=== PATIENT | female | born 1970 | race Caucasian/White ===

== ENCOUNTER 2024-09-16 20:06 | Emergency (ER) | payer OTHER, SELFPAY ==
[2024-09-16 20:08] VITALS: BP 134/84; PULSE 84; RESP 18; TEMP 35.9; O2SAT 98; BMI 32.7
--- NOTE | 2024-09-16 20:40 | EKG12_ITS ---
Test Reason : DYSRHYTHMIA Blood Pressure : */* mmHG Vent. Rate : 77 BPM Atrial Rate : 77 BPM P-R Int : 158 ms QRS Dur : 94 ms QT Int : 402 ms P-R-T Axes : 38 6 22 degrees QTcB Int : 454 ms Normal sinus rhythm Minimal voltage criteria for LVH, may be normal variant ( R in aVL ) Borderline ECG Confirmed by MIKE VILLASENOR, MAE ([id number]), advertising editor NIMA POLLOCK ([id number]) on 09/17/2024 9:28:30 AM Referred By: Confirmed By: MAE MCKEON MD
--- NOTE | 2024-09-16 20:48 | RAD_ITS ---
PROCEDURE: CHEST PA AND LATERAL 09/16/2024 REASON FOR EXAM: HTN TECHNIQUE: Frontal and lateral views of the chest. COMPARISON: None FINDINGS: Hardware: None Heart: The heart size is normal. Mediastinum: The mediastinal contour is unremarkable. Lungs: The lungs are clear. Bones: The bones are unremarkable. Status post ACDF RAD/Chest PA and Lateral IMPRESSION: NO ACUTE FINDINGS. Reading Location: [facility]
--- NOTE | 2024-09-16 20:53 | EX.ED.DYSGE1 ---
HPI History of Present Illness Chief Complaint: Hypertension Narrative Narrative: Chief complaint and HPI: HTN. 54-year-old female with past medical history of HTN, peripheral neuropathy, GERD presents for evaluation of HTN. Patient states that she is on metoprolol and lisinopril for hypertension. She states it has been elevated the past several months so she checks it frequently. She is currently visiting from [facility] where she lives. She states she checked her blood pressure at home this evening and it was elevated. She states her Apple Watch is occasionally alerting her that she has tachycardia with a heart rate in the low 100s. Patient denies any lightheadedness, chest pain, shortness of breath, nausea, vomiting, fever, chills. Review of systems: See HPI Medications: As listed on the chart Allergies: As listed on the chart PFSH: Per chart Vital signs: As listed on the chart. Reviewed. Physical exam: Gen: A&O x3, NAD Head: Normocephalic, atraumatic Eyes: No sclera icterus, conjunctiva clear ENT: Moist mucous membranes Neck: Trachea midline, No JVD CV: RRR, no murmurs, no peripheral edema Resp: Lungs CTA BL, no w/r/c GI: Abd soft, non-distended, non-tender, no r/r/g Musc: Full ROM, no deformity Skin: Warm, dry Neuro: Alert, oriented, grossly intact, sensation intact Psych: Cooperative, appropriate mood and affect [facility] Medical History (Updated 09/16/24 @ 21:[address] Manas Carrizales, ) Hx of renal calculi Hx of blood clots GERD (gastroesophageal reflux disease) Fibromyalgia Hypertension Home Medications ?Medication ?Instructions ?Recorded ?Last Taken ?Type duloxetine 40 mg capsule,delayed 40 mg PO DAILY 09/16/24 Unknown History release lisinopril 5 mg tablet 5 mg PO DAILY 09/16/24 Unknown History metoprolol succinate 25 mg capsule 25 mg PO DAILY 09/16/24 Unknown History sprinkle, ext. release 24 hr pantoprazole 40 mg tablet,delayed 40 mg PO DAILY 09/16/24 Unknown History release Allergy/AdvReac Type Severity Reaction Status Date / Time indomethacin (From Indocin) Allergy Low white Verified 09/16/24 20:08 blood cell naproxen (From Naprosyn) Allergy Other Verified 09/16/24 20:08 Sulfa (Sulfonamide Allergy Rash Verified 09/16/24 20:08 Antibiotics) Surgical History (Updated 09/16/24 @ 20:31 by Frances Zelaya) History of prolapse of bladder Hx of neck surgery Hx of cholecystectomy Hx of tonsillectomy Hx of hysterectomy with oophorectomy History of ankle surgery Social History Smoking Status: Never smoker EXAM Physical Exam Const Vital Signs: 09/16/24 20:08 09/16/24 20:17 09/16/24 21:55 Temperature 96.6 F L 98.0 F Temperature Source Temporal Pulse Rate 84 83 Respiratory Rate 18 16 Respiratory Effort Normal Non-Labored Respiratory Pattern Normal Blood Pressure 134/84 H 130/82 H Blood Pressure Mean 100 98 Pulse Ox 98 98 Oxygen Delivery Method Room Air MDM MDM MDM Narrative Medical decision making narrative: 54-year-old female with past medical history of HTN, peripheral neuropathy, GERD presents for evaluation of HTN. Patient states that she is on metoprolol and lisinopril for hypertension. Denies any associated symptoms with the HTN. On presentation, patient is no acute distress. Vitals are stable other than mild hypertension with blood pressure 134/84. Differential diagnosis includes but is not limited to established hypertension, hypertension urgency, hypertensive emergency, arrhythmia. Will get basic labs including EKG and chest x-ray. Will monitor patient's vitals here in the emergency department. EKG and chest x-ray reviewed see below. CBC unremarkable without leukocytosis, anemia. No platelet dysfunction. BMP unremarkable. Troponin unremarkable. Patient not having any chest pain therefore will not get delta troponin. Patient's blood pressure is 130/82. She has not been tachycardic here in the emergency department. She is asymptomatic. Patient is stable to discharge home. No clear etiology for her reported abnormalities. She was told to continue monitoring. Follow-up with PCP. Return precautions explained. She confirmed understand the plan. EKG: Interpreted by me/EM physician: EKG shows normal sinus rhythm without any acute ischemic changes. Heart rate 77. Diagnostic: Interpreted by me/EM physician: Chest x-ray without pneumonia, effusion, cardiomegaly, pneumothorax Impression: 1. Hypertension with history of hypertension 2. Reported tachycardia Lab Data Labs: Laboratory Results - last 24 hr 09/16/24 20:30 WBC 9.5 RBC 4.95 Hgb 14.0 Hct 41.9 MCV 84.6 MCH 28.3 MCHC 33.4 RDW Std Deviation 38.4 RDW Coeff of Audra 12.6 Plt Count 379 MPV 9.4 Immature Gran % (Auto) 0.300 Neut % (Auto) 46.2 L Lymph % (Auto) 45.3 H Franklin % (Auto) 5.9 Eos % (Auto) 1.6 Baso % (Auto) 0.7 Absolute Neuts (auto) 4.4 Absolute Lymphs (auto) 4.30 Nucleated RBC % 0 Sodium 139 Potassium 3.6 Chloride 103 Carbon Dioxide 25.0 Anion Gap 11 BUN 11 Creatinine 0.84 Estim Creat Clear Calc 86.42 Est GFR (MDRD) Non-Af 83 BUN/Creatinine Ratio 13.3 Glucose 107 H Calcium 9.5 Troponin T High Sens < 6 Radiography Diagnostic Testing: Clinical Impression(s) from Imaging Studies Chest X-Ray 09/16/24 20:48 IMPRESSION: NO ACUTE FINDINGS. Reading Location: [facility] Discharge Plan Triage Chief Complaint: Hypertension ED Provider: Manas Carrizales Dx/Rx/DC Orders Clinical Impression: Hypertension Instructions: Hypertension Dc Prescriptions: No Action lisinopril 5 mg tablet 5 mg PO DAILY metoprolol succinate 25 mg capsule,sprinkle,ER 24hr 25 mg PO DAILY duloxetine 40 mg capsule,delayed release(DR/EC) 40 mg PO DAILY pantoprazole 40 mg tablet,delayed release (DR/EC) 40 mg PO DAILY Primary Care Provider: Care Physician,Rozina Primary Referrals: Follow-up with your primary care physician [Other] Activity Restrictions/Additional Instructions: Continue your home medications. Continue to monitor your blood pressure and heart rate. Follow-up with your primary care physician back in [place]. Return back to the ED if symptoms change or worsen. Print Language: Swiss Disposition Disposition: Home, Self Care Discharge Date/Time: 09/16/24 21:59
[2024-09-16 20:58] LABS: Absolute Neutrophil Count 4.4 X10^3/uL (2.0-7.7); Basophil# 0.07 X10^3/uL; Basophil% 0.7 % (0-1); Eosinophil# 0.15 X10^3/uL; Eosinophils% 1.6 % (0-5); Hematocrit 41.9 % (37-47); Lymphocyte % 45.3 % (19-41); Mean Corp Hgb Conc 33.4 g/dL (32-36); Mean Corpuscular Hgb 28.3 pg (27.0-32.0); Mean Corpuscular Volume 84.6 fL (81-99); Mean Platelet Vol. 9.4 fl (6.2-12.0); Monocyte# 0.56 X10^3/uL; Monocyte% 5.9 % (0-10); NRBC Flagged by Analyzer 0 % (0-5); Neutrophil # 4.38 X10^3/uL (2.7-7.7); Neutrophil % 46.2 % (47-70); Platelet Count 379 K/mm3 (150-450); RBC Distribution Width CV 12.6 % (11.6-14.6); RBC Distribution Width SD 38.4 fl (35.1-43.9); Red Blood Count 4.95 M/mm3 (4.2-5.4); White Blood Count 9.5 K/mm3 (4.4-11.0)
[2024-09-16 21:21] LABS: Anion Gap 11 (5-15); BUN 11 mg/dL (4-19); BUN/Creat Ratio 13.3 RATIO (10-20); Calcium,Total 9.5 mg/dL (7.6-11.0); Chloride 103 mmol/L (98-108); Creatinine, Serum 0.84 mg/dL (0.70-1.20); EST Glomerular Filtration Rate 83 (>60); Estimated Creatinine Clearance 86.42 ml/min (50-250); Glucose 107 mg/dL (70-99); Potassium 3.6 mmol/L (3.3-5.1); Sodium Level 139 mmol/L (133-145); Troponin T High Sensitivity < 6 ng/L (<=14)
[2024-09-16 21:55] VITALS: BP 130/82; PULSE 83; RESP 16; TEMP 36.7; O2SAT 98
== END 2024-09-16 21:59 | disposition home or self-care (01) ==
PROVIDERS: Emergency Provider Surgery; Visit Provider Surgery
DX: I10 Essential (primary) hypertension (principal); Z90.710 Acquired absence of both cervix and uterus; Z79.899 Other long term (current) drug therapy; K21.9 Gastro-esophageal reflux disease without esophagitis; Z90.49 Acquired absence of other specified parts of digestive tract; R00.0 Tachycardia, unspecified
CPT/HCPCS: 71046; 80048; 84484; 85025; 93005; 99284; A4216